=== PATIENT | male | born 1965 | race Caucasian/White ===

== ENCOUNTER 2019-03-13 01:03 | Outpatient (CLI) | payer OTHER, SELFPAY ==
--- NOTE | 2019-03-13 10:24 | DI.RAD_ITS ---
EXAM: XR HIP PELVIS ADULT BL INDICATION: DISABILITY DETERMINATION,SEVERE JOINT PAIN,PROGRESSIVE ARTHRITIS,INGA HIP. COMPARISON: No exams were available for comparison TECHNIQUE: 2D digital imaging was performed. FINDINGS: The study is limited due to the patient's body habitus. Mild joint space narrowing is seen of the hi ps bilaterally. The sacroiliac joints and symphysis pubis appear unremarkable. The bones appear int act. The soft tissues are unremarkable. IMPRESSION: Mild degenerative changes of the hips.
--- NOTE | 2019-03-13 10:24 | DI.RAD_ITS ---
EXAM: XR KNEE LT 2V AP,LAT INDICATION: DISABILITY DETERMINE,SEVERE JOINT PAIN,INGA KNEE PAIN,ID BY PHOTO LICENSE. COMPARISON: No exams were available for comparison TECHNIQUE: 2D digital imaging was performed. FINDINGS: There is mild periarticular spurring at the patellofemoral joint and both the medial and lateral femo ral tibial joint spaces. There is mild joint space narrowing in the medial femoral tibial joint. Th e bones are normally aligned and intact. The soft tissues are unremarkable. IMPRESSION: Mild degenerative changes of the left knee.
--- NOTE | 2019-03-13 10:24 | DI.RAD_ITS ---
EXAM: XR LUMBAR SPINE AP, LAT INDICATION: DISABILITY DETERMINATION, PROGRESSIVE ARTHRITIS, SEVERE JOINT PAIN. COMPARISON: No exams were available for comparison TECHNIQUE: 2D digital imaging was performed. FINDINGS: There are 5 lumbar type vertebral bodies. There is normal alignment. No spondylolysis or spondyloli sthesis is seen. There are degenerative changes of the facet joints at L4-5 and L5-S1. No acute fra cture or subluxation is present. IMPRESSION: Mild degenerative changes of the lumbar spine.
--- NOTE | 2019-03-13 10:24 | DI.RAD_ITS ---
EXAM: XR KNEE RT 2V AP,LAT INDICATION: DISABILITY DETERMINATION, INGA KNEE PAIN, SEVERE JOINT PAIN. COMPARISON: XR KNEE LT 2V AP,LAT from 03/13/2019 TECHNIQUE: 2D digital imaging was performed. FINDINGS: There is mild joint space narrowing of the femorotibial joint. The joint spaces are otherwise well m aintained. The bones appear intact and normally mineralized. The soft tissues are unremarkable. IMPRESSION: Mild joint space narrowing.
== END 2019-03-13 01:23 ==
PROVIDERS: Visit Provider Pediatrics Pediatric Rheumatology
DX: M16.0 Bilateral primary osteoarthritis of hip (principal); Z02.71 Encounter for disability determination; M25.551 Pain in right hip; M25.552 Pain in left hip; M54.5 Low back pain; M47.817 Spondylosis without myelopathy or radiculopathy, lumbosacral region; M25.561 Pain in right knee; M25.562 Pain in left knee; M17.12 Unilateral primary osteoarthritis, left knee
CPT/HCPCS: 73521; 72100; 73560

== ENCOUNTER 2020-10-13 03:22 | Outpatient (CLI) | payer OTHER, SELFPAY ==
[2020-10-13] MEDS: Albuterol HFA 18 GM 200 PUFF INH IH (15:56)
[2020-10-13] MEDS: Inhaler, Assist Device 1 EACH MC (15:57)
--- NOTE | 2020-10-21 08:28 | W.PFT ---
Date of service: 10/13/20 Time of Service: 02:54 Pulmonary Function Test Result Interpretation Spirometry: No evidence of obstructive airways disease, no bronchodilator response. This test was somewhat of a suboptimal patient effort. There is a suggestion towards restriction, though this may represent chest wall restriction from underlying obesity. Restrictive pattern cannot be further evaluated without total lung capacity measurements. Impression No evidence of obstructive airways disease, no bronchodilator response. This test was somewhat of a suboptimal patient effort. There is a suggestion towards restriction, though this may represent chest wall restriction from underlying obesity. Restrictive pattern cannot be further evaluated without total lung capacity measurement Clinical Correlation therefore is recommended.
== END 2020-10-13 03:23 | disposition home or self-care (01) ==
LOC: RT 03:23
PROVIDERS: PCP Nurse Practitioner Primary Care; Visit Provider Orthopaedic Surgery
DX: Z02.71 Encounter for disability determination (principal); E66.9 Obesity, unspecified; J18.9 Pneumonia, unspecified organism
CPT/HCPCS: 94060

== ENCOUNTER 2021-11-19 04:09 | Emergency (ER) | payer OTHER, MEDICARE, SELFPAY ==
[2021-11-19 04:16] VITALS: BP 159/90; PULSE 111; RESP 16; TEMP 36.5; O2SAT 95
--- NOTE | 2021-11-19 04:27 | ED.GENADUL_ITS ---
Discharge Plan Disposition Patient Disposition: HOME Condition: Stable Discharge Details Clinical Impression: Epistaxis Primary Care Provider: Edna Ramírez ED Provider: Nishant Rubio Home Meds and New Rx's Prescriptions: Continued lisinopril 5 mg Tablet 5 mg PO DAILY pregabalin [Lyrica] 25 mg Capsule 25 mg PO BID furosemide [Lasix] 80 mg Tablet 80 mg PO DAILY Held aspirin 81 mg Tablet 81 mg PO DAILY Hold Instructions: Resume on 11/29/21. when rhino rocket is taken out and no recurrent bleeding Discharge Instructions Additional Instructions: You had a nasal packing called a rhino rocket placed to control the bleeding follow up with your ears nose and throat specialist today if you have increased bleeding or start having bleeding on the right nose return to the emergency department Medical Decision Making 55 yo male with hx of htn no prior history of significant epistaxis comes in with one week of intermittent left nose bleeding and tonight has been more constant. Denies any trauma to the nose and denies fevers, chills, chest pain, dyspnea. He has slow oozing blood out of his left nose, none out of the right. He did have a clot he blew out of his nose. I suspect anterior nose bleed given the slow oozing of blood, afrin instilled in the nose and will have him hold pressure with nasal clamp and try to better visualize anterior nose. Still could not visualize area to cauterize, after he consented verbally proceeded with 7.5cm rhino rocket and he did have some anxiety about feeling as though he was drowning with the sterile water that was on the rhino rocket. I was able to get most of the rhino rocket it but he had me stop with about 1-2cm left to go in. The bleeding stopped after balloon inflation. Will observe for recurrence. no recurrent bleeding and tolerating well. He is stable for d/c. He states he has an appt today at 1pm [facility] so advised to keep this appointment and they can attempt removal today for a scope and arrange follow up. Return precautions given Differential Diagnosis Differential Diagnosis: anterior epistaxis, posterior epistaxis HPI General Mode of arrival: ambulatory . Date/Time Provider Initiated Documentation: 11/19/21 04:10 . Limitations to Documentation: no limitations . Information obtained by: patient . History of Present Illness 55 year old M presents to the emergency department with the chief complaint of bloody nose, described as moderate, Patient started experiencing this week(s) (1) and it has been intermittent. No relieving factors improve symptom(s), No exacerbating factors reported . Patient notes no other symptoms.. Patient did receive the following treatments prior to arrival, none Related Data Home Medications Medication Instructions Recorded Confirmed aspirin 81 mg tablet 81 mg PO DAILY 11/19/21 11/19/21 furosemide 80 mg tablet (Lasix) 80 mg PO DAILY 11/19/21 11/19/21 lisinopril 5 mg tablet 5 mg PO DAILY 11/19/21 11/19/21 pregabalin 25 mg capsule (Lyrica) 25 mg PO BID 11/19/21 11/19/21 Allergies Allergy/AdvReac Type Severity Reaction Status Date / Time No Known Allergies Allergy Unverified 11/19/21 04:22 General Stated Complaint: Epistaxis TOSHA: 3 Review of Systems All systems reviewed & are unremarkable except as noted in HPI and below Constitutional Constitutional: Denies chills, Denies fever(s) and Denies weakness Cardiovascular Cardiovascular: Denies chest pain and Denies dyspnea Respiratory Respiratory: Denies dyspnea Gastrointestinal Gastrointestinal: Denies abdominal pain and Denies vomiting Integumentary/Breasts Skin/Breast: Denies rash Neurologic Neurologic: Denies weakness PFSH All Active Problems (Updated 11/19/21 @ 05:07 by Nishant Rubio MD) Epistaxis (Acute) Social History Smoking/Tobacco Use Status: Never Smoking risk assessment performed?: Yes Alcohol Intake: former Drug use: Occasionally Substance use type: marijuana Exam Const General: no acute distress Orientation: alert HENGA Head: normal to inspection Ears: external ears normal General nose exam: epistaxis on the left Mouth: moist mucous membranes Eyes General: appearance normal, both eyes and all related structures Neck Neck: normal visual inspection Resp Effort & Inspection: normal respiratory effort and able to speak in complete sentences Cardio Rate: regular rate Skin General skin exam: no rashes or lesions noted Neuro General: patient alert and patient oriented x3 Extrem General: normal to inspection Psych Mental Status: mental status grossly normal Course Vital Signs Vital signs: Vital Signs Temperature 36.5 C 11/19/21 04:16 Pulse 111 H 11/19/21 04:16 Respiratory Rate 16 11/19/21 04:16 Blood Pressure 159/90 H 11/19/21 04:16 Pulse Oximetry 95 11/19/21 04:16 Temperature 36.5 C 11/19/21 04:16 Temperature Source Skin 11/19/21 04:16 Pulse 111 H 11/19/21 04:16 Respiratory Rate 16 11/19/21 04:16 Respiratory Effort 11/19/21 04:16 Blood Pressure 159/90 H 11/19/21 04:16 Blood Pressure Position Sitting 11/19/21 04:16 Pulse Oximetry 95 11/19/21 04:16 Oxygen Delivery Method Room Air 11/19/21 04:16 Oxygen Flow Rate 0 11/19/21 04:16 Pain Level 0 11/19/21 04:16 Procedures Epistaxis Control Time Out Performed: Yes Nostril: left Direct Inspection: yes Clots Removed by: blowing nose Cautery Used: none Device Inserted: other (7.5 rhino rocket) Patient Tolerated Procedure: no complications
[2021-11-19] MEDS: Oxymetazolone 0.05% SPRAY 15 ML BTL (04:30)
--- NOTE | 2021-11-19 05:01 | NUR.NOTE ---
[place] pal to L nostril. Nursing Note:
--- NOTE | 2021-11-19 05:26 | NUR.NOTE ---
Referral faxed to ENT per Dr. Rubio for appt on Wednesday 11/22 for epistaxis to have the rhino rocket removed and further management. Placed the referral in the acute care registered nurse's box for follow up assistance with this.Nursing Note:
--- NOTE | 2021-11-19 05:32 | NUR.NOTE ---
Per Dr. Rubio, patient has an appt [facility] today at 1pm so the referral to our ENT is not needed.Nursing Note:
[2021-11-19 05:35] VITALS: BP 124/69; PULSE 98; RESP 16; TEMP 36.5; O2SAT 94
== END 2021-11-19 05:55 | disposition home or self-care (01) ==
PROVIDERS: Emergency Provider Emergency Medicine; PCP Nurse Practitioner Primary Care
DX: R04.0 Epistaxis (principal)
CPT/HCPCS: 30901